=== PATIENT | male | born 1950 | race Caucasian/White ===

== ENCOUNTER 2017-03-23 12:07 | Emergency (ER) | payer MEDICARE, BC ==
--- NOTE | 2017-03-23 13:10 | EDM.PDOC ---
ED HPI GENERAL MEDICAL PROBLEM - General Chief Complaint: Genitourinary Problem Stated Complaint: CAN'T URINATE/HAD CATH TAKEN OUT Time Seen by Provider: 03/23/17 13:09 Source of Information: Reports: Patient History Limitations: Reports: No Limitations - History of Present Illness INITIAL COMMENTS - FREE TEXT/NARRATIVE: pt had his cath removed yesterday and he is having trouble passing his urine. He also has the urge to void frequentl. Onset: Today Duration: Hour(s): Associated Symptoms: Reports: No Other Symptoms - Related Data Allergies Allergy/AdvReac Type Severity Reaction Status Date / Time No Known Allergies Allergy Verified 03/23/17 12:36 Home Meds: Home Meds Ciprofloxacin [Ciprofloxacin HCl] 03/23/17 [History] Lisinopril 10 mg PO DAILY 03/23/17 [History] metFORMIN [Glucophage] 500 mg PO BIDMEALS 03/23/17 [History] Past Medical History Cardiovascular History: Reports: Hypertension Genitourinary History: Reports: Prostate Disorder Endocrine/Metabolic History: Reports: Diabetes, Type II Oncologic (Cancer) History: Reports: Prostate - Past Surgical History GI Surgical History: Reports: Colonoscopy Male Surgical History: Reports: TURP-Transurethral Resection of Prostate Social & Family History - Tobacco Use Smoking Status *Q: Never Smoker Second Hand Smoke Exposure: No - Caffeine Use Caffeine Use: Reports: None - Recreational Drug Use Recreational Drug Use: No ED ROS GENERAL - Review of Systems Review Of Systems: See Below Constitutional: Reports: No Symptoms HEENT: Reports: No Symptoms Respiratory: Reports: No Symptoms Cardiovascular: Reports: No Symptoms Endocrine: Reports: No Symptoms GI/Abdominal: Reports: No Symptoms : Reports: Urinary Retention, Other (pt has the urge to void frequently. ) Musculoskeletal: Reports: No Symptoms Skin: Reports: No Symptoms ED EXAM, RENAL/ - Physical Exam Exam: See Below Text/Narrative:: pt arrived with a problem voiding. He had a total prostectomy done 1 week ago. His cath was removed yesterday and he is havimng problems voiding. Exam Limited By: No Limitations General Appearance: Alert, Anxious, Moderate Distress Ears: Normal TMs Nose: Normal Inspection Throat/Mouth: Normal Inspection Head: Atraumatic Neck: Normal Inspection Respiratory/Chest: No Respiratory Distress Cardiovascular: Regular Rate, Rhythm GI/Abdominal: Soft, Non-Tender (Male) Exam: Other ( bladder was scanned and he had 400-500 cc of urine in the bladder. ) Rectal (Males) Exam: Deferred Extremities: Normal Inspection Neurological: Alert, Oriented, Normal Cognition Psychiatric: Normal Affect Course - Vital Signs Last Recorded V/S: Last Vital Signs Temp 36.7 C 03/23/17 12:34 Pulse 81 03/23/17 14:06 Resp 12 03/23/17 14:06 BP 136/68 03/23/17 14:06 Pulse Ox 96 03/23/17 14:06 - Orders/Labs/Meds Orders: Active Orders 24 hr Category Date Time Status Briggs Catheter Insertion [Insert Urinary Catheter] [OM. Care 03/23/17 13:15 Ordered PC] Q24H Urinary Catheter Assessment [RC] ASDIRECTED Care 03/23/17 13:09 Active Labs: Laboratory Tests 03/23/17 Range/Units 13:41 Urine Color Yellow Urine Appearance Slightly cloudy Urine pH 6.0 (4.5-8.0) Ur Specific [employer] 1.020 (1.008-1.030) Urine Protein Negative (NEGATIVE) mg/dL Urine Glucose (UA) Normal (NEGATIVE) mg/dL Urine Ketones Negative (NEGATIVE) mg/dL Urine Occult Blood Large (NEGATIVE) Urine Nitrite Negative (NEGAITVE) Urine Bilirubin Negative (NEGATIVE) Urine Urobilinogen Normal (NORMAL) mg/dL Ur Leukocyte Esterase Negative (NEGATIVE) Urine RBC 20-30 H (0-5) Urine WBC 0-5 (0-5) Ur Epithelial Cells Rare Amorphous Sediment Not seen Urine Bacteria Rare Urine Mucus Not seen Meds: Medications Discontinued Medications Generic Name Dose Route Start Last Admin Trade Name Curry PRN Reason Stop Dose Admin Lidocaine HCl 10 ml 03/23/17 13:11 Xylocaine 2% Jelly MUCMEM 03/23/17 13:12 ONETIME ONE - Re-Assessments/Exams Free Text/Narrative Re-Assessment/Exam: 03/23/17 14:42 pt had a normal Urine. with no signs of infection. The urologist was call--Dr Monge and he wanted the cath left in place and they will call from Dr Kline office for a appt for removal of the cath and voiding trials. Departure - Departure Time of Disposition: 14:45 Disposition: Home, Self-Care 01 Condition: Fair Clinical Impression: Urinary retention - Discharge Information Forms: ED Department Discharge Care Plan Goals: discharge home, push fluids. - My Orders Last 24 Hours: My Active Orders 03/23/17 13:09 Urinary Catheter Assessment [RC] ASDIRECTED 03/23/17 13:15 Briggs Catheter Insertion [Insert Urinary Catheter] [OM.PC] Q24H - Assessment/Plan Last 24 Hours: My Active Orders 03/23/17 13:09 Urinary Catheter Assessment [RC] ASDIRECTED 03/23/17 13:15 Briggs Catheter Insertion [Insert Urinary Catheter] [OM.PC] Q24H
[2017-03-23] MEDS ORDERED: Lidocaine 2% Jelly 10 ML Urojet MUCMEM ONE (13:11)
[2017-03-23 14:07] VITALS: BP 136/68
== END 2017-03-23 15:41 | disposition home or self-care (01) ==
LOC: JP.ED 12:07
DX: R33.9 Retention of urine, unspecified (principal); E11.9 Type 2 diabetes mellitus without complications; I10 Essential (primary) hypertension; Z79.84 Long term (current) use of oral hypoglycemic drugs; Z98.890 Other specified postprocedural states; Z85.46 Personal history of malignant neoplasm of prostate
CPT/HCPCS: 51702; 81001; 99283; 99284-25